=== PATIENT | female | born 1935 | race Caucasian/White ===

== ENCOUNTER 2016-04-30 15:08 | Emergency (ER) | payer MEDICARE, OTHER ==
[~2016-04-30] VITALS: Wt 65.8 kg
[~2016-04-30 15:08] MED LIST: A & D OINT TUBE60 GM TP; ADVAIR DISKUS 21 DSK IH; ALBUTEROL0.09 MG/A4 INH; ALBUTEROL2.5 MG/3 M IH; ALBUTEROL2.5 MG/3 M INH; AMIODARONE200 MG PO; CELEXA10 MG PO; COLACE 100100 MG/CAP PO; COREG25 MG PO; COZAAR50 MG PO; DUO-KAPS1 CAP PO; DURAGESIC25 MCG/PAT TD; EFFEXOR XR150 MG PO; EFFEXOR XR37.5 MG/CA PO; EFFEXOR XR75 MG PO; ELIQUIS2.5 MG PO; FUROSEMIDE20 MG PO; FUROSEMIDE80 MG PO; IMODIUM 2MG CAPS2 MG PO; IRON FERROUS S325 MG PO; ITRACONAZOLE100 MG PO; KLOR-CON 1010 MEQ PO; LIORESAL 1010 MG/TAB PO; LOPERAMIDE2 MG PO; LORTAB 2.5/5001 TAB PO; LUNESTA2 MG PO; MIRALAX17 GM/DOSE PO; MULTI VITAMINS1 TAB PO; NEXIUM 40MG40 MG PEG; NYSTATIN1 POW; OMEPRAZOLE D/R20 MG PO; OMEPRAZOLE20 MG PO; OMEPRAZOLE40 MG PO; PRADAXA75 MG PO; Patient's Own Medication PO; Patient's Own Medication TOP; REFRESH TEARS 115 ML OP; REGLAN 10MG10 MG/TAB PO; SPIRIVA18 MCG IH; SYSTANE 0.4%-0.1 SOL OP; TOPCARE PAIN R325 MG PO; TUMS500 MG PO; TYLENOL 325MG325 MG PO; [UNRECOGNIZED DRUG - MIXTURE] TP; [UNRECOGNIZED DRUG - OTHER] TP; [UNRECOGNIZED DRUG - OTHER] TP
[2016-04-30] MEDS ORDERED: REGLAN5 M1 PO (15:46)
[2016-04-30] MEDS ORDERED: DITROPAN XL 5MG5 M1 PO (15:49)
[2016-04-30] MEDS ORDERED: LEXAPRO20 M1 PO (15:49)
[2016-04-30] MEDS ORDERED: NATURE'S BLEND1 TA9 PO (15:50)
[2016-04-30] MEDS ORDERED: PANTOPRAZOLE SO40 MG PO (15:51)
[2016-04-30] MEDS ORDERED: ELIQUIS5 MG PO (15:51)
[2016-04-30] MEDS ORDERED: TRAMADOL 50 MG TAB PO (15:52)
[2016-04-30] MEDS ORDERED: LIDOCREAM5 GM TOP (15:54)
[2016-04-30] MEDS ORDERED: AMLODIPINE BES2.5 MG PO (15:55)
[2016-04-30] MEDS ORDERED: DURAGESIC1 EACH TOP (15:56)
[2016-04-30] MEDS ORDERED: ADVIL LIQUI-GE200 MG PO (15:57)
[2016-04-30] MEDS ORDERED: PROAIR RESPICL90 MCG INH (16:12)
[2016-04-30] MEDS ORDERED: IPRATROPIUM BROM3 M1 INH (16:12)
[2016-04-30 17:08] VITALS: BP 142/53
== END 2016-04-30 17:20 | disposition home or self-care (01) ==
LOC: ED 15:08
DX: R91.8 Other nonspecific abnormal finding of lung field (principal); Z91.81 History of falling; Z86.73 Personal history of transient ischemic attack (TIA), and cerebral infarction without residual deficits; Z87.891 Personal history of nicotine dependence
CPT/HCPCS: A4353

== ENCOUNTER → 2016-05-05 | Outpatient (CLI) | payer MEDICARE, OTHER ==
[~2016-05-05] MED LIST changes: +ADVIL LIQUI-GE200 MG PO; +AMLODIPINE BES2.5 MG PO; +BIOFREEZE COLD118 ML; +DAILY MULTIPLE1 T18 PO; +DITROPAN XL 5MG5 M1 PO; +DURAGESIC1 EACH TOP; +DURAGESIC75 MCG/PAT TD; +ELIQUIS5 MG PO; +EXCEDRIN MIGRA1 EACH PO; +IPRATROPIUM BROM3 M1 INH; +LEXAPRO20 M1 PO; +LIDOCREAM5 GM TOP; +LORAZEPAM0.5 M1 PO; +MACROBID 100 M100 MG PO; +MACUVITE EYE C1 EACH PO; +MIRALAX17 GM PO; +NATURE'S BLEND1 TA9 PO; +PANTOPRAZOLE SO40 MG PO; +PROAIR RESPICL90 MCG INH; +REGLAN5 M1 PO; +TRAMADOL 50 MG TAB PO; +TYLENOL 500MG500 MG PO
== END ==
LOC: RAD 10:17
DX: R91.8 Other nonspecific abnormal finding of lung field (principal); R93.8 Abnormal findings on diagnostic imaging of other specified body structures; Z90.2 Acquired absence of lung [part of]; I70.0 Atherosclerosis of aorta; I25.10 Atherosclerotic heart disease of native coronary artery without angina pectoris; E04.1 Nontoxic single thyroid nodule

== ENCOUNTER → 2016-05-13 | Outpatient (CLI) | payer MEDICARE, OTHER | LOC: LAB 08:41 | DX: R91.8 Other nonspecific abnormal finding of lung field (principal); I63.9 Cerebral infarction, unspecified; N18.3 Chronic kidney disease, stage 3 (moderate) ==

== ENCOUNTER 2016-07-20 11:55 | Emergency (ER) | payer MEDICARE, OTHER ==
[~2016-07-20 11:55] MED LIST changes: -BIOFREEZE COLD118 ML; -DAILY MULTIPLE1 T18 PO; -DURAGESIC75 MCG/PAT TD; -EXCEDRIN MIGRA1 EACH PO; -LORAZEPAM0.5 M1 PO; -MACROBID 100 M100 MG PO; -MACUVITE EYE C1 EACH PO; -MIRALAX17 GM PO; -TYLENOL 500MG500 MG PO
[2016-07-20] MEDS ORDERED: LORAZEPAM0.5 M1 PO (14:43)
== END 2016-07-20 15:42 | disposition home or self-care (01) ==
LOC: ED 11:55
DX: R06.02 Shortness of breath (principal); J44.9 Chronic obstructive pulmonary disease, unspecified; J45.909 Unspecified asthma, uncomplicated; Z85.118 Personal history of other malignant neoplasm of bronchus and lung; R91.8 Other nonspecific abnormal finding of lung field

== ENCOUNTER → 2016-07-30 | Outpatient (CLI) | payer MEDICARE, OTHER ==
[~2016-07-30] MED LIST changes: +BIOFREEZE COLD118 ML; +DAILY MULTIPLE1 T18 PO; +DURAGESIC75 MCG/PAT TD; +EXCEDRIN MIGRA1 EACH PO; +LORAZEPAM0.5 M1 PO; +MACROBID 100 M100 MG PO; +MACUVITE EYE C1 EACH PO; +MIRALAX17 GM PO; +TYLENOL 500MG500 MG PO
== END ==
LOC: LAB 08:39
DX: N18.3 Chronic kidney disease, stage 3 (moderate) (principal)

== ENCOUNTER 2016-08-26 15:23 | Emergency (ER) | payer MEDICARE, OTHER ==
[~2016-08-26 15:23] MED LIST changes: -BIOFREEZE COLD118 ML; -DAILY MULTIPLE1 T18 PO; -DURAGESIC75 MCG/PAT TD; -EXCEDRIN MIGRA1 EACH PO; -MACROBID 100 M100 MG PO; -MACUVITE EYE C1 EACH PO; -MIRALAX17 GM PO; -TYLENOL 500MG500 MG PO
[2016-08-26] MEDS ORDERED: MIRALAX17 GM PO (15:37)
[2016-08-26] MEDS ORDERED: MACUVITE EYE C1 EACH PO (15:38)
[2016-08-26] MEDS ORDERED: DAILY MULTIPLE1 T18 PO (15:40)
[2016-08-26] MEDS ORDERED: DURAGESIC75 MCG/PAT TD (15:45)
[2016-08-26] MEDS ORDERED: BIOFREEZE COLD118 ML (15:48)
[2016-08-26] MEDS ORDERED: EXCEDRIN MIGRA1 EACH PO (15:48)
[2016-08-26] MEDS ORDERED: TYLENOL 500MG500 MG PO (15:49)
[2016-08-26] MEDS ORDERED: MACROBID 100 M100 MG PO (17:20)
[2016-08-26 17:24] VITALS: BP 165/55
== END 2016-08-26 17:40 | disposition home or self-care (01) ==
LOC: ED 15:23
DX: M54.9 Dorsalgia, unspecified (principal); N39.0 Urinary tract infection, site not specified; G89.29 Other chronic pain; W19.XXXA Unspecified fall, initial encounter
CPT/HCPCS: J1885

== ENCOUNTER → 2016-10-15 | Outpatient (CLI) | payer MEDICARE, OTHER ==
[~2016-10-15] MED LIST changes: +BIOFREEZE COLD118 ML; +DAILY MULTIPLE1 T18 PO; +DURAGESIC75 MCG/PAT TD; +EXCEDRIN MIGRA1 EACH PO; +MACROBID 100 M100 MG PO; +MACUVITE EYE C1 EACH PO; +MIRALAX17 GM PO; +TYLENOL 500MG500 MG PO
== END ==
LOC: RAD 08:48
DX: S82.62XD Displaced fracture of lateral malleolus of left fibula, subsequent encounter for closed fracture with routine healing (principal)

== ENCOUNTER → 2016-10-29 | Outpatient (CLI) | payer MEDICARE, OTHER | LOC: RAD 15:34 | DX: M25.549 Pain in joints of unspecified hand (principal); M85.842 Other specified disorders of bone density and structure, left hand ==

== ENCOUNTER → 2016-11-19 | Outpatient (CLI) | payer MEDICARE, OTHER | LOC: RAD 14:47 | DX: R91.8 Other nonspecific abnormal finding of lung field (principal); I63.9 Cerebral infarction, unspecified; J43.1 Panlobular emphysema; I48.2 Chronic atrial fibrillation; F41.1 Generalized anxiety disorder; M15.9 Polyosteoarthritis, unspecified ==

== ENCOUNTER → 2016-11-25 | Outpatient (CLI) | payer MEDICARE, OTHER | LOC: LAB 09:16 | DX: N25.81 Secondary hyperparathyroidism of renal origin (principal); N18.3 Chronic kidney disease, stage 3 (moderate) ==

== ENCOUNTER → 2017-02-20 | Outpatient (CLI) | payer MEDICARE, OTHER ==
[2017-02-20 14:44] LABS: URINE APPEARANCE HAZY; URINE BILIRUBIN NEGATIVE (NEGATIVE); URINE COLOR YELLOW; URINE GLUCOSE 50 mg/dL mg/dL (NEGATIVE); URINE KETONE NEGATIVE (NEGATIVE); URINE PROTEIN(semi-quant) NEGATIVE (NEGATIVE)
[2017-02-20 14:45] LABS: URINE BLOOD NEGATIVE (NEGATIVE); URINE LEUKOCYTE ESTERASE TRACE (NEGATIVE); URINE NITRATE NEGATIVE (NEGATIVE); URINE UROBILINOGEN NORMAL (NORMAL)
== END ==
LOC: LAB 13:43
DX: R41.82 Altered mental status, unspecified (principal)

== ENCOUNTER 2017-06-08 19:39 | Emergency (ER) | payer MEDICARE, OTHER ==
[2017-06-08 20:27] LABS: HEMATOCRIT 39.9 % (37.0-47.0); HEMOGLOBIN 12.9 g/dL (12.5-16.0); MEAN CELL VOLUME 94 fl (78-100); MEAN CORPUSCULAR HEMOGLOBIN 30 pg (27-31); MEAN CORPUSCULAR HGB CONC 32 g/dL (33-37); MEAN PLATELET VOLUME 10.8 fl (7.4-10.4); PLATELET COUNT 289 K/mm3 (130-400); RED BLOOD COUNT 4.25 M/mm3 (4.10-5.30); RED CELL DISTRIBUTION WIDTH 14.3 % (11.5-14.5); WHITE BLOOD COUNT 11.3 K/mm3 (4.8-10.8)
[2017-06-08 20:44] LABS: ALBUMIN 3.3 g/dL (3.5-5.0); BUN/CREATININE RATIO 25.9 (6.0-26.0); CALCIUM 8.9 mg/dL (8.4-10.2); POTASSIUM 4.3 mmol/L (3.6-5.0); TOTAL BILIRUBIN 0.4 mg/dL (0.2-1.3); TOTAL PROTEIN 5.9 g/dL (6.3-8.2)
[2017-06-08 20:50] LABS: LYMPHOCYTE 5 % (20-51); MONOCYTE 3 % (3-10); NEUTROPHILS 92 % (42-75); OVALOCYTES 1+
[2017-06-08 20:54] LABS: URINE APPEARANCE CLOUDY; URINE BILIRUBIN NEGATIVE (NEGATIVE); URINE BLOOD NEGATIVE (NEGATIVE); URINE COLOR YELLOW; URINE GLUCOSE NEGATIVE (NEGATIVE); URINE KETONE NEGATIVE (NEGATIVE); URINE LEUKOCYTE ESTERASE TRACE (NEGATIVE); URINE NITRATE POSITIVE (NEGATIVE); URINE PROTEIN(semi-quant) TRACE mg/dL (NEGATIVE); URINE UROBILINOGEN NORMAL (NORMAL)
[2017-06-08 22:17] VITALS: BP 119/70
[2017-06-08] MEDS ORDERED: DECADRON 4MG TAB4 MG PO (23:15)
[2017-06-08] MEDS ORDERED: BENZTROPINE1 MG PO (23:15)
[2017-06-08] MEDS ORDERED: ASPIRIN E.C. 8181 MG PO (23:16)
[2017-06-08] MEDS ORDERED: CORDARONE200 MG/TAB PO (23:16)
[2017-06-08] MEDS ORDERED: DITROPAN 5MG TAB5 MG PO (23:17)
[2017-06-08] MEDS ORDERED: LEXAPRO20 M1 PO (23:18)
[2017-06-08] MEDS ORDERED: PROTONIX TR40 M1 PO (23:18)
[2017-06-08] MEDS ORDERED: MULTIVITAMIN1 SGL PO (23:19)
[2017-06-08] MEDS ORDERED: MIRALAX17 GM PO (23:19)
[2017-06-08] MEDS ORDERED: COLACE100 M1 PO (23:21)
[2017-06-08] MEDS ORDERED: IPRATROPIUM BROM3 M1 IH ×2 (23:22→23:26)
[2017-06-08] MEDS ORDERED: MORPHINE S100 MG/5 M PO (23:22)
[2017-06-08] MEDS ORDERED: EPINEPHRINE TOP (23:24)
[2017-06-08] MEDS ORDERED: [UNRECOGNIZED DRUG - OTHER] TOP (23:24)
[2017-06-08] MEDS ORDERED: KLONOPIN 1MG1 MG PO (23:26)
[2017-06-08] MEDS ORDERED: CALCIUM CARBONATE PO (23:26)
[2017-06-08] MEDS ORDERED: BIOFREEZE COLD118 ML TP (23:27)
[2017-06-08] MEDS ORDERED: MEDI-FIRST CHE7.6 MG MM (23:27)
[2017-06-08] MEDS ORDERED: GAS-X125 MG PO (23:29)
[2017-06-08] MEDS ORDERED: EXCEDRIN EXTRA1 EACH PO (23:29)
[2017-06-08] MEDS ORDERED: GAVISCON 80 MG-1 CT1 PO (23:30)
[2017-06-08] MEDS ORDERED: IMODIUM2 MG PO (23:31)
[2017-06-08] MEDS ORDERED: ALUMINUM H PO (23:34)
[2017-06-08] MEDS ORDERED: PEPTO BISM525 MG/15 PO (23:35)
[2017-06-08] MEDS ORDERED: SENOKOT NATURA8.6 MG PO (23:37)
[2017-06-08] MEDS ORDERED: SYSTANE 0.3-0.415 ML OP (23:38)
[2017-06-08] MEDS ORDERED: TYLENOL 325MG325 MG PO (23:38)
[2017-06-08] MEDS ORDERED: PREPARATION H HYDR1% TP (23:39)
[2017-06-08] MEDS ORDERED: ZANTAC150 M1 PO (23:39)
[2017-06-08] MEDS ORDERED: ATIVAN1 M1 PO ×2 (23:40→23:41)
== END 2017-06-08 22:17 | disposition home or self-care (01) ==
LOC: ED 19:39
PROVIDERS: Nurse Practitioner Primary Care
DX: M54.5 Low back pain (principal); M54.6 Pain in thoracic spine; M54.2 Cervicalgia; W19.XXXA Unspecified fall, initial encounter; Y92.129 Unspecified place in nursing home as the place of occurrence of the external cause; Z88.2 Allergy status to sulfonamides; I69.354 Hemiplegia and hemiparesis following cerebral infarction affecting left non-dominant side; M21.372 Foot drop, left foot; Z79.82 Long term (current) use of aspirin
CPT/HCPCS: A4353; J2270; Q9967